=== PATIENT | female | born 1990 | race Caucasian/White ===

== ENCOUNTER 2017-04-15 11:41 | Day surgery (SDC) | payer OTHER ==
[~2017-04-15 11:41] MED LIST: CEFAZOLIN 1 GM INJ
[2017-04-15] MEDS ORDERED: SOD CHLORIDE 0.9% 1,000 ML IV (12:30)
[2017-04-15] MEDS ORDERED: CEFAZOLIN 1 GM/50 ML (PMX) 50 ML IVPB (12:30)
[2017-04-15] MEDS ORDERED: BUPIVACAINE 0.25% (MPF) 30 ML INJ (14:51)
[2017-04-15] MEDS ORDERED: BUPIVACAINE 0.5% (SDV) 30 ML INJ (14:58)
[2017-04-15] MEDS ORDERED: LIDOCAINE 2% (MDV) 20 ML INJ ×2 (14:58→15:09)
[2017-04-15] MEDS ORDERED: KETOROLAC 30 MG INJ (15:06)
[2017-04-15] MEDS ORDERED: MIDAZOLAM 1 MG/ML 2 ML INJ (15:06)
[2017-04-15] MEDS ORDERED: ONDANSETRON 4 MG INJ (15:06)
[2017-04-15] MEDS ORDERED: PROPOFOL 20 ML (15:06)
[2017-04-15] MEDS ORDERED: LIDOCAINE 2% (SDV) 5 ML INJ (15:06)
[2017-04-15] MEDS: BUPIVACAINE 0.5% (MPF) 30 ML INJ EPI (15:19)
[2017-04-15] MEDS: LIDOCAINE 2% (MDV) 20 ML INJ INJ (15:19)
[2017-04-15] MEDS ORDERED: HYDROmorphONE (0.2 MG/ML) 10ML SYG IV ×3 (15:30)
[2017-04-15] MEDS ORDERED: MIDAZOLAM 1 MG/ML 2 ML INJ IV (15:30)
[2017-04-15] MEDS ORDERED: OXYCODONE/ACETAMINOPHEN (5/325) TAB PO ×2 (15:30)
[2017-04-15] MEDS ORDERED: MEPERIDINE 25 MG INJ IV (15:30)
[2017-04-15] MEDS ORDERED: hydrALAzine 20 MG INJ IV (15:30)
[2017-04-15] MEDS ORDERED: ONDANSETRON 4 MG INJ IV (15:30)
[2017-04-15] MEDS ORDERED: TRIMETHOBENZAMIDE 100 MG/ML VIAL IM (15:30)
[2017-04-15] MEDS ORDERED: FENTAnyl 50 MCG/ML VIAL IV ×3 (15:30)
[2017-04-15] MEDS ORDERED: ALBUTEROL 0.083% (NEB) 2.5 MG/3 ML AMP HHN (15:30)
[2017-04-15] MEDS ORDERED: IPRATROPIUM (NEB) 0.5 MG/2.5 ML AMP HHN (15:30)
[2017-04-15] MEDS ORDERED: HYDROCODONE/APAP (5/325) TAB PO (15:30)
[2017-04-15] MEDS ORDERED: LABETALOL HCL 20MG INJ IV (15:30)
[2017-04-15] MEDS ORDERED: DIPHENHYDRAMINE 50 MG INJ IV (15:30)
[2017-04-15] MEDS ORDERED: EPHEDrine SULFATE 50 MG/5 ML SYG IV (15:30)
== END 2017-04-15 16:54 | disposition home or self-care (01) ==
LOC: SDS 11:41
DX: D17.1 Benign lipomatous neoplasm of skin and subcutaneous tissue of trunk (principal); Z87.891 Personal history of nicotine dependence
CPT/HCPCS: 14000; 84703; 88307